=== PATIENT | male | born 1950 ===

== ENCOUNTER 2018-02-05 12:06 | Emergency (ER) | payer OTHER ==
[2018-02-05 12:23] VITALS: BP 134/72; PULSE 52; TEMP 98; O2SAT 97
--- NOTE | 2018-02-05 13:39 | C.PDOC ---
History Of Present Illness 67 y/o male comes in for evaluation of right-sided lower back pain, gradually worsening over the past few weeks. Pain is radiating to the right thigh and knee , and worsens with ambulation. Pt admits to having similar symptoms in the past , when was diagnosed with sciatica. Otherwise, pt denies recent trauma or injury , abdominal pain, nausea, vomiting, diarrhea, incontinence, saddle anesthesia, denies weakness, sensory deficits to B/L lower extremities. Ambulate to ED. Time Seen by Provider: 02/05/18 12:39 Chief Complaint (Nursing): Lower Extremity Problem/Injury History Per: Patient History/Exam Limitations: no limitations Onset/Duration Of Symptoms: Days Current Symptoms Are (Timing): Still Present Past Medical History Reviewed: Historical Data, Nursing Documentation, Vital Signs Vital Signs: Last Vital Signs Temp 98 F 02/05/18 12:21 Pulse 52 L 02/05/18 12:21 Resp 20 02/05/18 14:08 BP 134/72 02/05/18 12:21 Pulse Ox 97 02/05/18 13:56 - Medical History Other PMH: Sciatica Surgical History: No Surg Hx Family History: States: No Known Family Hx - Social History Hx Alcohol Use: Yes Hx Substance Use: No - Immunization History Hx Tetanus Toxoid Vaccination: No Hx Influenza Vaccination: No Hx Pneumococcal Vaccination: No Review Of Systems Except As Marked, All Systems Reviewed And Found Negative. Constitutional: Negative for: Fever Gastrointestinal: Negative for: Nausea, Vomiting, Abdominal Pain, Diarrhea Genitourinary: Negative for: Incontinence Musculoskeletal: Positive for: Back Pain, Leg Pain Neurological: Negative for: Weakness, Numbness Physical Exam - Physical Exam Appears: Non-toxic, No Acute Distress Skin: Normal Color, Warm, No Ecchymosis Head: Normacephalic Eye(s): bilateral: PERRL Nose: No Flaring Oral Mucosa: Moist Neck: Normal ROM, Supple Gastrointestinal/Abdominal: Soft, No Tenderness, No Distention, No Guarding, No Rebound Back: No CVA Tenderness, No Vertebral Tenderness, Muscle Spasm (Right lumbar paraspinal), Paraspinal Tenderness (Right paralumbar tenderness, extending down to right gluteus), No Straight Leg Raising Extremity: Normal ROM, No Tenderness, No Pedal Edema, No Calf Tenderness, No Deformity, No Swelling DTR: Knee (R): 2+, Ankle (R): 2+ Neurological/Psych: Oriented x3, Normal Speech, Normal Motor, Normal Sensation, Other (No focal deficits) ED Course And Treatment O2 Sat by Pulse Oximetry: 97 (RA) Pulse Ox Interpretation: Normal Progress Note: On re-evaluation, pt is afebrile, hemodynamicaly stable. NOn- toxic. Ambulatory in Ed with stable gait. ENT: no acute findings. neck: Supple. Abd: benign, (-) guaridng, (-) rebound. back: (-) CVA tenderness. Neuorlogicaly intact. Pt has clinical finidngs c/w Right lumbar radiculopathy. Pt advised on course of ds. ref. to f/u with PMD in 2-3 days for re-eval. return if any new changes. Disposition Counseled Patient/Family Regarding: Diagnosis, Need For Followup, Rx Given - Disposition Referrals: Jose Negron [Staff Provider] - Disposition: HOME/ ROUTINE Disposition Time: 13:37 Condition: STABLE Additional Instructions: Light duty to lower back, avoid bending, heavy lifting bedrest for 2-3 days Take medication as prescribed Follow up with PMD in 2-3 days for re-evaluation, MRI of L-spine return to ED if any worsening or new changes. Prescriptions: Gabapentin [Neurontin] 300 mg PO BID #14 cap Prednisone [Deltasone] 40 mg PO DAILY #6 tablet traMADol [Ultram] 50 mg PO TID #7 tab Instructions: Radiculopathy (DC) Forms: [employer] ([place]ian) - Clinical Impression Clinical Impression: Lumbar radiculopathy - PA / DIRECTOR HEMATOLOGY / Resident Statement MD/DO has reviewed & agrees with the documentation as recorded. - Scribe Statement The provider has reviewed the documentation as recorded by the Scribe (Elisha Rosario) All medical record entries made by the Scribe were at my direction and personally dictated by me. I have reviewed the chart and agree that the record accurately reflects my personal performance of the history, physical exam, medical decision making, and the department course for this patient. I have also personally directed, reviewed, and agree with the discharge instructions and disposition.
[2018-02-05 14:09] VITALS: RESP 20
== END 2018-02-05 14:08 | disposition home or self-care (01) ==
LOC: C.ER 12:06
DX: M54.16 Radiculopathy, lumbar region (principal)